=== PATIENT | male | born 2000 | race Caucasian/White ===

== ENCOUNTER 2019-03-25 12:23 | Emergency (ER) | payer BC, MEDICAID, OTHER ==
[~2019-03-25] VITALS: Ht 154.9 cm; Wt 58.2 kg
[~2019-03-25 12:23] MED LIST: ARIP5TAB14 PO; FLUO20CA22 PO; IBUP-1542 PO; LAMO25TA8 PO
[2019-03-25 12:30] VITALS: Ht 154.9 cm; Wt 58.2 kg
[2019-03-25] MEDS ORDERED: IBUPROFEN 800 MG TAB PO ONE (12:30)
[2019-03-25 16:09] VITALS: BP 129/81; PULSE 78; RESP 20
== END 2019-03-25 16:10 | disposition home or self-care (01) ==
LOC: E/R 12:23
DX: S60.221A Contusion of right hand, initial encounter (principal); S43.401A Unspecified sprain of right shoulder joint, initial encounter; F32.9 Major depressive disorder, single episode, unspecified; W22.8XXA Striking against or struck by other objects, initial encounter; Y92.9 Unspecified place or not applicable
CPT/HCPCS: 36415; 73030; 73130; 80048; 80307; 85025; Z7502; Z7610